=== PATIENT | female | born 1965 | race Caucasian/White ===

== ENCOUNTER 2017-12-23 19:38 | Emergency (ER) | payer BC, OTHER ==
[~2017-12-23] VITALS: Ht 165.1 cm; Wt 64.0 kg
[2017-12-23] MEDS ORDERED: ACYC-113 PO (19:48)
[2017-12-23] MEDS ORDERED: HYDROmorphone 1 MG/ML, 1ML IM ONE (20:00)
[2017-12-23] MEDS ORDERED: ONDANSETRON ODT 4 MG PO ONE (20:00)
[2017-12-23] MEDS ORDERED: ONDANSETRON ODT 4 MG ONE (20:01)
[2017-12-23] MEDS ORDERED: HYDROmorphone 2 MG/ML, 1ML ONE (20:02)
[2017-12-23 20:41] VITALS: BP 121/78
== END 2017-12-23 22:03 ==
LOC: ED 21:45
DX: S82.434A Nondisplaced oblique fracture of shaft of right fibula, initial encounter for closed fracture (principal); W01.0XXA Fall on same level from slipping, tripping and stumbling without subsequent striking against object, initial encounter; Y93.89 Activity, other specified; Y92.410 Unspecified street and highway as the place of occurrence of the external cause; Y99.8 Other external cause status
CPT/HCPCS: 29515; 73610; 96372; 99284; J1170; Q0162